=== PATIENT | male | born 2005 | race Caucasian/White ===

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

== ENCOUNTER → 2025-03-22 10:01 | Outpatient (BNVA) | payer SELFPAY | PROVIDERS: PCP Nurse Practitioner Family; Visit Provider Nurse Practitioner Family | DX: I10 Essential (primary) hypertension (principal); R53.83 Other fatigue; Z13.220 Encounter for screening for lipoid disorders | CPT/HCPCS: 80053; 80061; 84403; 84443; 85025 ==